=== PATIENT | male | born 1945 | race Caucasian/White ===

== ENCOUNTER 2020-10-03 19:00 | Inpatient (IN) ==
[2020-10-03] MEDS ORDERED: cefTRIAXone 1 gm/50 mL NS BAG 1 GM/50 ML BAG IV ONE (20:01)
[2020-10-03 20:12] LABS: Hematocrit 45 % (42-52); Hemoglobin 14.9 g/dL (14.0-18.0); Mean Corpuscular HGB Conc 33 g/dL (31-36); Mean Corpuscular Hemoglobin 32 pg (27-31); Mean Corpuscular Volume 95 fL (80-94); Mean Platelet Volume 9.9 fL (7.4-10.4); Platelet Count 87 10^3/uL (150-450); Red Blood Count 4.71 10^6 /uL (4.18-5.48); Red Cell Distribution Width 21 % (10-15); White Blood Count 9.6 10^3/uL (3.5-10.8)
[2020-10-03 20:14] LABS: INR 1.72 (0.82-1.09)
[2020-10-03] MEDS ORDERED: NS 0.9% 1000 ml BAG 1,000 ML IV SCH (20:15)
[2020-10-03 20:17] LABS: ALT 27 U/L (7-52); AST 74 U/L (13-39); Albumin 3.3 g/dL (3.2-5.2); Albumin/Globulin Ratio 0.8 (1-3); Alkaline Phosphatase 109 U/L (34-104); Anion Gap 16 mmol/L (2-11); BUN/Creatinine Ratio 27.9 (8-20); Blood Urea Nitrogen 29 mg/dL (6-24); CO2 Carbon Dioxide 24 mmol/L (22-32); Chloride 104 mmol/L (101-111); Creatine Kinase 964 U/L (10-223); EGFR African American 84.5 (>60); EGFR Non-African American 69.8 (>60); Globulin 4.2 g/dL (2-4); Glucose 86 mg/dL (70-100); Magnesium 2.1 mg/dL (1.9-2.7); Sodium 144 mmol/L (135-145); Total Protein 7.5 g/dL (6.4-8.9)
[2020-10-03 20:21] LABS: Troponin I 0.15 ng/mL (<0.03)
[2020-10-03 20:22] LABS: Acetaminophen < 15 mcg/mL; Alcohol, S < 10 mg/dL (<10); Salicylate < 2.50 mg/dL (<30)
[2020-10-03] MEDS ORDERED: Azithromycin 500 mg/250 ml NS 500 MG/250 ML BAG IVPB ONE (20:34)
[2020-10-03 20:36] LABS: TSH Ultra Thyroid Stim Horm 1.42 mcIU/mL (0.34-5.60)
[2020-10-03 21:03] LABS: ABS Lymphocytes 0.5 10^3/ul (1.0-4.8); ABS Monocytes 0.7 10^3/ul (0-0.8); ABS Neutrophils 8.4 10^3/ul (1.5-7.7); Lymphocyte % 4.9 %
[2020-10-03] MEDS ORDERED: Metoprolol Tartrate 5 mg VIAL 5 ml VIAL (1 mg/ml) IV ONE (21:25)
[2020-10-03] MEDS ORDERED: Diltiazem IV push/loading dose 5 MG/ML 5 ML vial (25 mg) IV SLOW PU ONE (21:33)
[2020-10-03] MEDS ORDERED: Iohexol 350 (CONTRAST) 500 ML MDV IV ONE (21:36)
[2020-10-03] MEDS ORDERED: Etomidate 20 mg/10 ml 2 MG/ML 10 ml VIAL ONE (22:44)
[2020-10-03] MEDS ORDERED: Midazolam 2 mg/2 ml VIAL 1 mg/ml 2 ml VIAL (2 mg) IV SLOW PU PRN (22:59)
[2020-10-03] MEDS ORDERED: fentaNYL INFUSION 50 MCG/ML 2,500 MCG/50 ML BAG IV SCH (23:00)
[2020-10-03] MEDS ORDERED: Propofol 10 mg/ml 100 ML BTL 100 ML ONE (23:08)
[2020-10-03] MEDS ORDERED: Propofol 10 mg/ml 100 ML BTL 100 ML IV ONE (23:20)
[2020-10-03] MEDS ORDERED: fentaNYL 100 mcg/2 ml 50 MCG/ML VIAL ONE (23:27)
[2020-10-03] MEDS ORDERED: Rocuronium 50 mg VIAL 10 mg/ml 5 ml VIAL (50 mg) IV ONE (23:30)
[2020-10-03] MEDS ORDERED: fentaNYL 100 mcg/2 ml 50 MCG/ML VIAL IV SLOW PU ONE (23:30)
[2020-10-03] MEDS ORDERED: Furosemide 40 mg/4 ml IV VIAL IV SLOW PU ONE (23:48)
[2020-10-04] MEDS ORDERED: Alteplase (100 mg Vial) 100 MG in Premix IV 100 ML IV ONE (02:12)
[2020-10-04] MEDS ORDERED: Hydrocortisone INJ 100 MG/2ML 2 ML VIAL IV ONE ×2 (02:27)
[2020-10-04 02:54] LABS: Urine Appearance Turbid; Urine Bilirubin Negative (Negative); Urine Blood 3+ (Negative); Urine Color Amber; Urine Glucose Negative (Negative); Urine Ketones Negative (Negative); Urine Nitrite Negative (Negative); Urine Protein 2+(100 mg/dL) (Negative); Urine Specific Gravity 1.038 (1.010-1.030); Urine Urobilinogen Negative (Negative)
[2020-10-04 02:56] LABS: Hematocrit 40 % (42-52); Hemoglobin 13.1 g/dL (14.0-18.0); Mean Corpuscular HGB Conc 33 g/dL (31-36); Mean Corpuscular Hemoglobin 31 pg (27-31); Mean Corpuscular Volume 95 fL (80-94); Mean Platelet Volume 9.3 fL (7.4-10.4); Platelet Count 60 10^3/uL (150-450); Red Cell Distribution Width 20 % (10-15); White Blood Count 9.1 10^3/uL (3.5-10.8)
[2020-10-04 02:58] LABS: INR 1.89 (0.82-1.09)
[2020-10-04] MEDS ORDERED: Hydrocortisone INJ 250 MG VIAL IV SCH (03:00)
[2020-10-04 03:09] LABS: BUN/Creatinine Ratio 32.7 (8-20); Calcium 8.1 mg/dL (8.6-10.3); EGFR African American 87.4 (>60); EGFR Non-African American 72.2 (>60); Magnesium 2.1 mg/dL (1.9-2.7); Phosphorus 4.9 mg/dL (2.5-5.0); Potassium 3.8 mmol/L (3.5-5.0)
[2020-10-04] MEDS ORDERED: Heparin DRIP 25,000 UNITS BAG 25,000 UNITS/500 ML BAG IV SCH (03:15)
[2020-10-04 03:17] LABS: Urine Benzodiazepine Screen Presumptive Positive (None Detect); Urine Cannabinoids Screen None Detected (None Detect); Urine Opiates Screen None Detected (None Detect)
[2020-10-04] MEDS ORDERED: Albuterol/Ipratropium NEB.SOL (2.5/0.5 MG) 3 ML NEB.SOLN INH PRN (03:29)
[2020-10-04 03:32] LABS: Urine Bacteria Absent (Absent); Urine Red Blood Cell 3+(>10/hpf) (Absent); Urine Squamous Epithelial Cell Present (Absent); Urine White Blood Cell Trace(0-5/hpf) (Absent)
[2020-10-04 03:36] LABS: Activated Partial Thrombo Time 34.8 seconds (26.0-38.0); INR 1.85 (0.82-1.09)
[2020-10-04] MEDS: Propofol 10 mg/ml 100 ML BTL 100 ML IV SCH ×3 (03:54→10:36)
[2020-10-04] MEDS ORDERED: Heparin 5000 UNITS/ML 1 mL VIAL IV SCH (04:00)
[2020-10-04] MEDS: Chlorhexidine MOUTHWASH 0.12% 15 ML UDC SWISH SPIT SCH ×3 (04:41→17:01)
[2020-10-04 05:35] LABS: ABS Lymphocytes 0.4 10^3/ul (1.0-4.8); ABS Monocytes 0.5 10^3/ul (0-0.8); ABS Neutrophils 8.1 10^3/ul (1.5-7.7); Eosinophil % 0.1 %; Hematocrit 38 % (42-52); Hemoglobin 12.7 g/dL (14.0-18.0); Lymphocyte % 4.9 %; Mean Corpuscular HGB Conc 33 g/dL (31-36); Mean Corpuscular Hemoglobin 31 pg (27-31); Mean Corpuscular Volume 95 fL (80-94); Nucleated Red Blood Cells % 0.1; Platelet Count 56 10^3/uL (150-450); Red Blood Count 4.05 10^6 /uL (4.18-5.48); Red Cell Distribution Width 20 % (10-15); White Blood Count 9.1 10^3/uL (3.5-10.8)
[2020-10-04 06:24] LABS: ALT 21 U/L (7-52); Albumin 2.7 g/dL (3.2-5.2); Albumin/Globulin Ratio 0.8 (1-3); Alkaline Phosphatase 84 U/L (34-104); BUN/Creatinine Ratio 33.3 (8-20); Blood Urea Nitrogen 33 mg/dL (6-24); CO2 Carbon Dioxide 23 mmol/L (22-32); Calcium 8.2 mg/dL (8.6-10.3); Chloride 107 mmol/L (101-111); Creatine Kinase 597 U/L (10-223); EGFR African American 89.4 (>60); EGFR Non-African American 73.9 (>60); Globulin 3.4 g/dL (2-4); Glucose 105 mg/dL (70-100); Magnesium 2.1 mg/dL (1.9-2.7); Phosphorus 4.9 mg/dL (2.5-5.0); Sodium 144 mmol/L (135-145); Total Protein 6.1 g/dL (6.4-8.9)
[2020-10-04 06:57] LABS: Anion Gap 14 mmol/L (2-11)
[2020-10-04] MEDS ORDERED: Saline FLUSH-CENTRAL 10 ML SYRINGE CENT\\PICC SCH (07:00)
[2020-10-04 07:30] LABS: Troponin I 0.23 ng/mL (<0.03)
[2020-10-04] MEDS ORDERED: Pantoprazole VIAL 40 MG VIAL IV SCH (09:00)
[2020-10-04] MEDS ORDERED: Norepinephrine 16MCG/ML IVPRE 4,000 MCG/250 ML BAG IV ONE (09:01)
[2020-10-04] MEDS ORDERED: Hydrocortisone INJ 100 MG/2ML 2 ML VIAL IV SCH (11:00)
[2020-10-04] MEDS ORDERED: cefTRIAXone 1 gm/50 mL NS BAG 1 GM/50 ML BAG IVPB SCH (12:00)
[2020-10-04 19:46] VITALS: BP 105/74
[2020-10-04] MEDS ORDERED: Azithromycin 500 mg/250 ml NS 500 MG/250 ML BAG IVPB SCH (21:00)
== END 2020-10-04 13:30 | disposition short-term general hospital (02) | DRG 871 ==
LOC: ED 19:00 → ICU 22:42
PROVIDERS: ADMIT Pediatrics; ATTEND Internal Medicine

== ENCOUNTER 2020-10-03 20:58 | Inpatient (IN) ==
[2020-10-04] MEDS ORDERED: Heparin 5000 UNITS/ML 1 mL VIAL IV SCH (19:00)
[2020-10-04] MEDS ORDERED: Heparin DRIP 25,000 UNITS BAG 25,000 UNITS/500 ML BAG IV SCH (19:00)
[2020-10-04 20:02] LABS: ABS Lymphocytes 0.4 10^3/ul (1.0-4.8); ABS Monocytes 0.4 10^3/ul (0-0.8); Hematocrit 41 % (42-52); Hemoglobin 13.5 g/dL (14.0-18.0); Lymphocyte % 4.4 %; Mean Corpuscular HGB Conc 33 g/dL (31-36); Mean Corpuscular Hemoglobin 31 pg (27-31); Mean Corpuscular Volume 95 fL (80-94); Mean Platelet Volume 9.7 fL (7.4-10.4); Nucleated Red Blood Cells % 0.1; Platelet Count 62 10^3/uL (150-450); Red Blood Count 4.37 10^6 /uL (4.18-5.48); Red Cell Distribution Width 20 % (10-15); White Blood Count 8.7 10^3/uL (3.5-10.8)
[2020-10-04 20:12] LABS: Albumin 2.8 g/dL (3.2-5.2); Albumin/Globulin Ratio 0.9 (1-3); BUN/Creatinine Ratio 37.3 (8-20); Calcium 8.2 mg/dL (8.6-10.3); EGFR African American 86.4 (>60); EGFR Non-African American 71.4 (>60); Globulin 3.2 g/dL (2-4); Potassium 3.9 mmol/L (3.5-5.0); Total Bilirubin 1.5 mg/dL (0.2-1.0)
[2020-10-04] MEDS ORDERED: Azithromycin 500 mg/250 ml NS 500 MG/250 ML BAG IVPB SCH (21:00)
[2020-10-04] MEDS: Chlorhexidine MOUTHWASH 0.12% 15 ML UDC TOPICAL SCH ×2 (21:10→21:28)
[2020-10-04] MEDS: Propofol 10 mg/ml 100 ML BTL 100 ML IV SCH (22:29)
[2020-10-04] MEDS ORDERED: Dexmedetomidine 1,000 MCG in NS 0.9% 250 ml 240 ML IV SCH (23:00)
[2020-10-04] MEDS ORDERED: Vasopressin 100 UNITS in D5W 250 ml BAG 245 ML IV SCH (23:45)
[2020-10-05] MEDS: Chlorhexidine MOUTHWASH 0.12% 15 ML UDC TOPICAL SCH ×3 (00:06→07:05)
[2020-10-05] MEDS: Propofol 10 mg/ml 100 ML BTL 100 ML IV SCH ×3 (01:53→07:40)
[2020-10-05] MEDS ORDERED: Rocuronium 50 mg VIAL 10 mg/ml 5 ml VIAL (50 mg) IV ONE (01:57)
[2020-10-05] MEDS ORDERED: Rocuronium 50 mg VIAL 10 mg/ml 5 ml VIAL (50 mg) ONE (01:58)
[2020-10-05] MEDS ORDERED: fentaNYL 100 mcg/2 ml 50 MCG/ML VIAL IV SLOW PU ONE (01:59)
[2020-10-05] MEDS ORDERED: fentaNYL 100 mcg/2 ml 50 MCG/ML VIAL ONE (02:00)
[2020-10-05 04:52] LABS: INR 1.56 (0.82-1.09)
[2020-10-05 04:58] LABS: Albumin 2.5 g/dL (3.2-5.2); Albumin/Globulin Ratio 0.8 (1-3); BUN/Creatinine Ratio 42.7 (8-20); Calcium 7.9 mg/dL (8.6-10.3); EGFR African American 92.6 (>60); EGFR Non-African American 76.6 (>60); Globulin 3.3 g/dL (2-4); Magnesium 2.2 mg/dL (1.9-2.7); Phosphorus 4.7 mg/dL (2.5-5.0); Potassium 3.8 mmol/L (3.5-5.0); Total Bilirubin 1.2 mg/dL (0.2-1.0); Total Protein 5.8 g/dL (6.4-8.9)
[2020-10-05 04:59] LABS: ABS Lymphocytes 0.4 10^3/ul (1.0-4.8); ABS Monocytes 0.3 10^3/ul (0-0.8); ABS Neutrophils 6.8 10^3/ul (1.5-7.7); Hematocrit 39 % (42-52); Hemoglobin 12.9 g/dL (14.0-18.0); Lymphocyte % 5.4 %; Mean Corpuscular HGB Conc 33 g/dL (31-36); Mean Corpuscular Hemoglobin 31 pg (27-31); Mean Corpuscular Volume 96 fL (80-94); Mean Platelet Volume 9.5 fL (7.4-10.4); Nucleated Red Blood Cells % 0.1; Platelet Count 53 10^3/uL (150-450); Red Blood Count 4.11 10^6 /uL (4.18-5.48); Red Cell Distribution Width 21 % (10-15); White Blood Count 7.5 10^3/uL (3.5-10.8)
[2020-10-05 05:23] LABS: Activated Partial Thrombo Time 106.9 seconds (26.0-38.0)
[2020-10-05] MEDS ORDERED: Albuterol/Ipratropium NEB.SOL (2.5/0.5 MG) 3 ML NEB.SOLN INH ONE (07:07)
[2020-10-05] MEDS ORDERED: Pantoprazole VIAL 40 MG VIAL IV SCH (09:00)
[2020-10-05 12:25] VITALS: BP 86/60
== END 2020-10-05 08:30 | disposition short-term general hospital (02) | DRG 871 ==
LOC: ICU 10-04 18:10
PROVIDERS: ADMIT Internal Medicine; ATTEND Internal Medicine